=== PATIENT | male | born 1990 | race Caucasian/White ===

== ENCOUNTER 2021-04-03 12:58 | Emergency (ER) | payer MEDICARE ==
[~2021-04-03] VITALS: Ht 177.8 cm; Wt 86.2 kg
[2021-04-03 13:04] VITALS: BP 112/66
[2021-04-03] MEDS ORDERED: DULOXETINE HCL40 MG PO (13:07)
[2021-04-03] MEDS ORDERED: DOXEPIN HCL6 MG PO (13:07)
[2021-04-03] MEDS ORDERED: [UNRECOGNIZED DRUG - OTHER] PO (13:07)
[2021-04-03] MEDS ORDERED: BUSPIRONE HCL15 MG PO (13:08)
[2021-04-03 13:32] LABS: BASOPHILS 0.5 %; HEMOGLOBIN 15.2 gm/dL (14.0-18.0)
[2021-04-03 13:34] LABS: ABSOLUTE LYMPHOCYTES 0.6 thou/uL (0.8-5.3); ABSOLUTE MONOCYTES 0.5 thou/uL (0.0-1.2); ABSOLUTE NEUTROPHILS 6.2 thou/uL (1.6-8.1); EOSINOPHILS 0.2 %; HEMATOCRIT 41.6 % (42.0-52.0); LYMPHOCYTES 7.8 %; MCH 31.8 pg (26.0-34.0); MCHC 36.6 g/dL (28.0-37.0); MONOCYTES 6.8 %; MPV 6.8 fl. (7.2-11.1); NUCLEATED RBCS 0 /100WBC; PLATELET COUNT* 206 thou/uL (150-400); POLYS 84.7 %; RBC 4.77 mil/uL (4.50-6.00); WBC 7.3 thou/uL (4.0-11.0)
[2021-04-03 13:38] LABS: CALCIUM 8.7 mg/dL (8.5-10.1); CREATININE 1.1 mg/dL (0.6-1.3); POTASSIUM 4.4 mmol/L (3.5-5.1)
[2021-04-03 13:43] LABS: ALBUMIN 4.1 g/dL (3.4-5.0); TOTAL BILIRUBIN 1.4 mg/dL (<0.1-1.0); TOTAL PROTEIN 7.2 g/dL (6.4-8.2)
[2021-04-03 14:06] LABS: ACETAMINOPHEN < 2 ug/mL (10-30); ALCOHOL < 10 mg/dL (<10)
[2021-04-03 14:07] LABS: SALICYLATE < 2.8 mg/dL (2.8-20.0)
== END 2021-04-03 14:37 | disposition home or self-care (01) ==
LOC: M.ERS 12:58
PROVIDERS: Family Medicine
DX: G47.00 Insomnia, unspecified (principal); F32.9 Major depressive disorder, single episode, unspecified; F41.9 Anxiety disorder, unspecified; Z79.899 Other long term (current) drug therapy